=== PATIENT | female | born 2000 | race Caucasian/White ===

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

== ENCOUNTER 2020-04-28 19:59 | Emergency (ER) | payer OTHER ==
--- NOTE | 2020-04-28 20:47 | ER Document Report ---
ED Medical Screen (RME) - General TRAVEL OUTSIDE OF THE [place] IN LAST 30 DAYS: No - General Chief Complaint: Dizziness Stated Complaint: LIGHT HEADEDNESS - HPI Context: This MD accidentally dictated in the RME chart for the patient. (YVETTE BURNETT IV) Notes: 04/28/20 20:46 20-year-old female to the emergency department with complaints of 4 days of dizziness, nausea and vomiting, poor appetite. She states that today she had a syncopal episode. She denies any abdominal pain, diarrhea, cough, fevers, chills. She states she thinks this might be related to her recent increase in her Zoloft. Last week she went from 25 mg to 50 mg. She takes Zoloft for depression. She states that she has not had any SI, HI, hallucinations. She is not on any other medications besides Zoloft. She has been taking 25 mg of Zoloft for about 2 months prior to the increase in the dose. I performed a brief medical screening exam on the patient determined that the patient needs further evaluation and management by main side provider. I have placed initial orders to help expedite care. (MARIBEL JOYA) - Related Data Allergies/Adverse Reactions: No Known Allergies Allergy (Verified 05/04/18 09:48) Past Medical History Renal/ Medical History: Denies: Hx Peritoneal Dialysis Physical Exam - Vital signs Vitals: Temp Pulse Resp BP Pulse Ox 98.4 F 75 20 130/73 H 98 04/28/20 20:10 04/28/20 20:10 04/28/20 20:10 04/28/20 20:10 04/28/20 20:10 Course - Vital Signs Vital signs: Temp Pulse Resp BP Pulse Ox 98.4 F 68 20 110/45 L 98 04/28/20 20:10 04/28/20 21:44 04/28/20 20:10 04/28/20 21:44 04/28/20 20:10
[2020-04-28] MEDS ORDERED: PROMETHAZINE HCL INJ 25 MG/1 ML VIAL IV ONE (21:45)
[2020-04-28] MEDS ORDERED: KETOROLAC TROMETHAMINE INJ/PF 30 MG/1 ML SDV IV ONE (21:45)
--- NOTE | 2020-04-28 21:45 | EKG REPORT ---
SEVERITY:- NORMAL ECG - SINUS RHYTHM : Confirmed by: Lucia Collins MD 28-Apr-2020 21:44:42
[2020-04-28] MEDS ORDERED: NORMAL SALINE 1000 ML 1,000 ML IV ONE (21:46)
--- NOTE | 2020-04-28 21:46 | RADIOLOGY REPORT (SQ) ---
EXAM DESCRIPTION: X-RAY CHEST- One View CLINICAL HISTORY: Syncope COMPARISON: None available TECHNIQUE: Single view of the chest. FINDINGS: There are no discrete air space infiltrates, pneumothoraces or pleural effusions. The pulmonary vascularity is normal. The cardiomediastinal silhouette is normal in size. No suspicious lytic or blastic osseous lesions are identified. IMPRESSION: There are no acute lung parenchymal findings.
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
[2020-04-28 22:16] LABS: APPEARANCE,URINE SLIGHTLY-CLOUDY; BILIRUBIN,URINE NEGATIVE (NEGATIVE); COLOR,URINE YELLOW; GLUCOSE, URINE NEGATIVE (NEGATIVE); KETONES,URINE NEGATIVE (NEGATIVE); PROTEIN,URINE NEGATIVE (NEGATIVE)
[2020-04-28 22:18] LABS: ABSOLUTE EOSINOPHILS # (AUTO) 0.1 10^3/uL (0.0-0.6); ABSOLUTE LYMPHOCYTES (AUTO) 4.4 10^3/uL (0.5-4.7); ABSOLUTE MONOCYTES (AUTO) 0.8 10^3/uL (0.1-1.4); ABSOLUTE NEUT (AUTO) 5.8 10^3/uL (1.7-8.2); BASOPHILS % (AUTO) 0.3 % (0-2); EOSINOPHILS % (AUTO) 0.8 % (0-6); HEMATOCRIT 39.2 % (36.0-47.0); LYMPHOCYTES % (AUTO) 39.1 % (13-45); MEAN CORPUSCULAR HEMOGLOBIN 25.5 pg (27.0-33.4); MEAN CORPUSCULAR HGB CONC 33.2 g/dL (32.0-36.0); MEAN CORPUSCULAR VOLUME 77 fl (80-97); MONOCYTES % (AUTO) 7.3 % (3-13); PLATELET COUNT 348 10^3/uL (150-450); RED BLOOD COUNT 5.12 10^6/uL (3.72-5.28); RED CELL DISTRIBUTION WIDTH 14.7 % (11.5-14.0); SEGMENTED NEUTROPHILS % (AUTO) 52.5 % (42-78); TOTAL CELLS COUNTED % (AUTO) 100 %; WHITE BLOOD COUNT 11.1 10^3/uL (4.0-10.5)
[2020-04-28 22:25] LABS: ALBUMIN 4.8 g/dL (3.5-5.0); ALKALINE PHOSPHATASE 73 U/L (38-126); ANION GAP 10 (5-19); ASPARTATE AMINO TRANSFERASE 25 U/L (14-36); BILIRUBIN,DIRECT 0.2 mg/dL (0.0-0.4); BILIRUBIN,TOTAL 0.3 mg/dL (0.2-1.3); BLOOD UREA NITROGEN 11 mg/dL (7-20); CALCIUM 9.5 mg/dL (8.4-10.2); CARBON DIOXIDE 25 mmol/L (22-30); CHLORIDE 104 mmol/L (98-107); GLUCOSE 101 mg/dL (75-110); POTASSIUM 4.1 mmol/L (3.6-5.0); TOTAL PROTEIN 7.6 g/dL (6.3-8.2)
--- NOTE | 2020-04-28 23:47 | RADIOLOGY REPORT (SQ) ---
EXAM DESCRIPTION: Noncontrast CT head CLINICAL HISTORY: 20 years Female ams TECHNIQUE: Noncontrast CT head. All CT scans at this facility use dose modulation, iterative reconstruction, and/or weight based dosing when appropriate to reduce radiation dose to as low as reasonably achievable. COMPARISON: None. FINDINGS: Obrien matter, white matter, ventricles, and cisterns are within normal limits. No acute hemorrhage or mass effect. Visualized portions of paranasal sinuses and mastoids are clear. Visualized portions of the calvarium are within normal limits. IMPRESSION: 1. No acute intracranial findings.
[2020-04-29 00:40] VITALS: BP 102/57
== END 2020-04-29 00:36 | disposition home or self-care (01) ==
LOC: ER 19:59
DX: R55 Syncope and collapse (principal); T43.225A Adverse effect of selective serotonin reuptake inhibitors, initial encounter; Y92.038 Other place in apartment as the place of occurrence of the external cause; F43.10 Post-traumatic stress disorder, unspecified; Z79.899 Other long term (current) drug therapy; R42 Dizziness and giddiness; R11.2 Nausea with vomiting, unspecified; R63.0 Anorexia; R51 Headache; R53.1 Weakness
CPT/HCPCS: 93005; 99285; 96361; 96374; 96375; 36415; 83735; 85025; 81025; 80053; 81001; 71045; 70450; 93010; J1885; J2550; J7030